=== PATIENT | male | born 1985 | race Caucasian/White ===

== ENCOUNTER 2016-11-10 20:26 | Emergency (ER) | payer BC, OTHER ==
[~2016-11-10] VITALS: Ht 167.6 cm; Wt 59.0 kg
[2016-11-10] MEDS ORDERED: LORazepam 2MG/ML-1ML VIAL ONE (23:12)
[2016-11-10] MEDS ORDERED: SODIUM CHLORIDE 0.9% 1,000 ML IV ONE (23:15)
[2016-11-10] MEDS ORDERED: HYDROmorphone HCL 2 MG/ML VL IV ONE (23:15)
[2016-11-10] MEDS ORDERED: ONDANSETRON HCL 4 MG/2 ML VIAL IV ONE (23:15)
[2016-11-10] MEDS ORDERED: LIDOCAINE W/ EPINEPHRINE 1% 20ML VIAL ONE (23:17)
[2016-11-10] MEDS ORDERED: LORazepam 2MG/ML-1ML VIAL IV ONE (23:30)
[2016-11-10 23:36] LABS: Basophils # (auto) 0 uL; Basophils % (auto) 0.1 % (0.0-2.0); Eosinophils # (auto) 0 uL; Eosinophils % (auto) 0.2 % (0.0-7.0); Hematocrit 43.3 % (41.0-53.0); Hemoglobin 14.6 g/dL (13.5-17.5); Lymphocytes # (auto) 1.7 uL; Lymphocytes % (auto) 11.3 % (10.0-50.0); Mean Corpuscular Hemoglobin 28.8 pg (28.0-32.0); Mean Corpuscular Hgb Conc. 33.8 g/dL (32.0-36.0); Mean Corpuscular Volume 85.4 fL (80.0-100.0); Mean Platelet Volume 7.5 fL (7.4-10.4); Monocytes # (auto) 0.9 uL; Monocytes % (auto) 5.9 % (0.0-12.0); Neutrophils # (auto) 12.2 uL; Neutrophils % (auto) 82.5 % (37.0-80.0); Platelet Count (auto) 272 10^3/uL (140-450); Red Cell Distribution Width 13.1 % (11.6-16.0); White Blood Cell 14.8 10^3/uL (4.4-10.8)
[2016-11-10 23:50] LABS: BUN/Creatinine Ratio 15.7; Calcium 8.6 mg/dL (8.5-10.1); Potassium 3.8 mmol/L (3.5-5.1)
[2016-11-10 23:53] LABS: Bilirubin, Total 0.6 mg/dL (0.2-1.0); Total Protein 7.1 g/dL (6.4-8.2)
[2016-11-10 23:56] LABS: INR 1.05 (0.9-1.15); Partial Thromboplastin Time 24.1 sec (22.64-33.71); Prothrombin Time 10.8 sec (9.37-12.3)
[2016-11-11] MEDS ORDERED: IOHEXOL 300 MG/ML 100ML BOTTLE IJ ONE (00:13)
[2016-11-11] MEDS ORDERED: HYDROmorphone HCL 2 MG/ML VL IV ONE (01:15)
[2016-11-11] MEDS ORDERED: ceFAZolin 1GM/50ML D5W 100 ML IV ONE (02:00)
[2016-11-11 02:30] VITALS: BP 116/59
== END 2016-11-11 02:00 | disposition short-term general hospital (02) ==
LOC: ER 20:26
DX: S22.41XA Multiple fractures of ribs, right side, initial encounter for closed fracture (principal); S27.0XXA Traumatic pneumothorax, initial encounter; S27.321A Contusion of lung, unilateral, initial encounter; V28.0XXA Motorcycle driver injured in noncollision transport accident in nontraffic accident, initial encounter; Y93.89 Activity, other specified; Y99.8 Other external cause status; Y92.410 Unspecified street and highway as the place of occurrence of the external cause
CPT/HCPCS: 32551; 36415; 71010; 71111; 71260; 72040; 73030; 74177; 80053; 82150; 83690; 85025; 85610; 85730; 96361; 96365; 96375; 96376; 99291; J0690; J1170; J2060; J2405; Q9967